=== PATIENT | female | born 1960 | race American Indian/Alaskan Native ===

== ENCOUNTER 2021-09-02 15:00 | Emergency (ER) | payer MEDICAID ==
[2021-09-02 16:41] VITALS: BP 134/79
--- NOTE | 2021-09-02 19:36 | XRay Report ---
CHEST 2 VIEWS INDICATION: sob. COMPARISON: None. FINDINGS: Support devices: None. Heart: Within normal limits. Lungs/Pleura: No acute air space or interstitial disease. No significant pleural effusion. Underlyi ng COPD. IMPRESSION: No acute findings. Signer Name: Corbin Bal MD Signed: 09/02/2021 7:31 PM Workstation Name: [id number]
--- NOTE | 2021-09-02 20:09 | Emergency Department Report ---
ED Shortness of Breath HPI - General Chief Complaint: Dyspnea/Respdistress Stated Complaint: COPD Time Seen by Provider: 09/02/21 19:23 Source: patient Mode of arrival: Ambulatory Limitations: No Limitations - History of Present Illness Initial Comments: 61-year-old female the past medical history of COPD (no home oxygen dependence) and hypertension presents to the hospital planing of URI symptoms for the past week. Patient is having chills, T-max of 100, and cough productive of white sputum. Patient is having a constant aching pain to her right lower anterior lateral chest for the past 4 days. Patient is concerned that she has pneumonia. He states pain is constant, dull, without aggravating or alleviating factors. Pain is not worse with inspiration, cough, or palpation. She denies significant shortness of breath. She is using her rescue and her maintenance inhaler and is not currently on nebs. Patient only received 1 dose of a Covid vaccine and denies loss of sense of taste and smell. She has not been recently vaccinated for Covid. There are no complaints of nausea or vomiting. - Related Data Previous Rx's Medication Instructions Recorded Last Taken Type Benzonatate [Tessalon Perles] 100 mg PO Q8HR PRN #20 cap 09/02/21 Unknown Rx Allergies Allergy/AdvReac Type Severity Reaction Status Date / Time No Known Allergies Allergy Verified 09/02/21 16:41 ED Review of Systems ROS: Stated complaint: COPD Other details as noted in HPI Comment: All other systems reviewed and negative ED Past Medical Hx - Past Medical History Hx Hypertension: Yes Hx COPD: Yes - Surgical History Past Surgical History?: No - Medications Home Medications: Home Medications Medication Instructions Recorded Confirmed Last Taken Type Benzonatate [Tessalon Perles] 100 mg PO Q8HR PRN #20 cap 09/02/21 Unknown Rx ED Physical Exam - General Limitations: No Limitations - Other Other exam information: General: No acute distress Head: Atraumatic Eyes: normal appearance ENT: Moist mucous membranes Neck: Normal appearance, no midline tenderness Chest: Clear to auscultation bilaterally, chest wall nontender CV: Regular rate and rhythm Abdomen: Soft, normal bowel sounds, nontender, nondistended, no rebound or guarding Back: Normal inspection Extremity: Normal inspection, full range of motion, no calf tenderness or leg edema Neuro: Alert O x 3, no facial asymmetry, speech clear, no gross motor sensory deficit Psych: Appropriate behavior Skin: No rash ED Course Vital Signs 09/02/21 16:36 Temperature 98.3 F Pulse Rate 95 H Respiratory 17 Rate Blood Pressure 134/79 O2 Sat by Pulse 93 Oximetry ED Medical Decision Making - Radiology Data Radiology results: report reviewed CHEST 2 VIEWS INDICATION: sob. COMPARISON: None. FINDINGS: Support devices: None. Heart: Within normal limits. Lungs/Pleura: No acute air space or interstitial disease. No significant pleural effusion. Underlying COPD. IMPRESSION: No acute findings. - Medical Decision Making 61-year-old female presents to the hospital with rest viral respiratory symptoms suspicious that she has pneumonia. Chest x-ray is unremarkable for infiltrate and confirms diagnosis of COPD. Patient sat 95% and she does not endorse any shortness of breath. She will be discharged home to continue symptomatic treatment for viral URI. Covid testing will be encouraged Critical Care Time: No Critical care attestation.: If time is entered above; I have spent that time in minutes in the direct care of this critically ill patient, excluding procedure time. ED Disposition Clinical Impression: Viral respiratory illness Disposition: HOME / SELF CARE / HOMELESS Is pt being admited?: No Does the pt Need Aspirin: No Condition: Stable Instructions: Viral Respiratory Infection, [id number], COVID-19: How to Protect Yourself and Others - CDC Additional Instructions: Take the medication as prescribed. Take Motrin or Tylenol as needed for cough and fever . follow-up with your doctor or doctor/clinic provided. Return if symptoms worsen as indicated by your discharge instructions. I recommend that you obtain outpatient Covid testing Prescriptions: Benzonatate [Tessalon Perles] 100 mg PO Q8HR PRN #20 cap PRN Reason: Cough Referrals: PRIMARY MD ARELI [Primary Care Provider] - 3-5 Days [facility] [Provider Group] - 3-5 Days (Primary care clinic) SHAZIA POOLE MD [Staff Physician] - 3-5 Days (Primary care doctor) Time of Disposition: 20:10
== END 2021-09-02 20:21 | disposition home or self-care (01) ==
LOC: ED 15:00
DX: J06.9 Acute upper respiratory infection, unspecified (principal); I10 Essential (primary) hypertension
CPT/HCPCS: 71046; 99283

== ENCOUNTER 2021-10-06 12:58 | Emergency (ER) | payer MEDICAID ==
[2021-10-06] MEDS ORDERED: ALBUTEROL 2.5 MG/3 ML NEBU IH ONE (13:27)
[2021-10-06] MEDS ORDERED: IPRATROPIUM 0.02% NEBU 2.5 ML IH ONE (13:27)
[2021-10-06] MEDS ORDERED: methylPREDNISolone Sod Succinate 125 MG/2 ML INJ IV ONE (13:28)
--- NOTE | 2021-10-06 14:53 | Emergency Department Report ---
Minor Respiratory - HPI Chief Complaint: Dyspnea/Respdistress Stated Complaint: COPD FLARE UP Time Seen by Provider: 10/06/21 13:28 Duration: 3 Days Pain Location: Chest Severity: moderate Minor Respiratory: Yes Able to Tolerate Fluids, Yes Shortness of Breath, No Rhinorrhea, No Sore Throat, No Ear Pain, No Cough, No Sick Contacts, No Hemoptysis, No Chest Pain, No Fever Other History: 61 yo comes to ER co wheezing and copd flare. No fever or chills. No chest pain. Out of her home meds. Did not see pcp. ED Review of Systems ROS: Stated complaint: COPD FLARE UP Other details as noted in HPI Comment: All other systems reviewed and negative ED Past Medical Hx - Past Medical History Previous Medical History?: Yes Hx Hypertension: Yes Hx COPD: Yes - Surgical History Past Surgical History?: No - Family History Family history: no significant - Social History Smoking Status: Current Every Day Smoker Substance Use Type: None - Medications Home Medications: Home Medications Medication Instructions Recorded Confirmed Last Taken Type ALBUTEROL NEB's [Proventil 0.083% 2.5 mg IH TID PRN #1 box 10/06/21 Unknown Rx NEBS] Albuterol Mdi (or & Nicu Only) 2 puff IH QID PRN #1 inhalation 10/06/21 Unknown Rx [ProAir HFA Inhaler] Fluticasone [Flonase] 1 spray NS QDAY #1 bottle 10/06/21 Unknown Rx predniSONE [Deltasone] 20 mg PO DAILY #5 tablet 10/06/21 Unknown Rx Minor Respiratory Exam - Exam General: Vital signs noted. No distress. Alert and acting appropriately. HEENT: Yes Moist Mucous Membranes, No Pharyngeal Erythema, No Pharyngeal Exudates, No Rhinorrhea, No Conjuctival Injection, No Frontal Tenderness, No Maxillary Tenderness Ear: Neither TM Bulge, Neither TM Erythema, Neither EAC Pain, Neither EAC Discharge Neck: Yes Supple, No Adenopathy Lungs: Yes Good Air Exchange, Yes Wheezes, No Ronchi, No Stridor, No Cough, No Labored Respirations, No Retractions, No Use of Accessory Muscles, No Other Abnormal Lung Sounds Heart: Yes Regular, No Murmur Abdomen: Yes Normal Bowel Sounds, No Tenderness, No Peritoneal Signs Skin: No Rash, No Edema Neurologic: Alert and oriented, no deficits. Musculoskeletal: Unremarkable. ED Course Vital Signs 10/06/21 13:24 Temperature 98.5 F Pulse Rate 92 H Respiratory 16 Rate O2 Sat by Pulse 92 Oximetry ED Medical Decision Making - Radiology Data Radiology results: report reviewed, image reviewed NAP - Medical Decision Making Vital Signs 10/06/21 13:24 Temperature 98.5 F Pulse Rate 92 H Respiratory 16 Rate O2 Sat by Pulse 92 Oximetry solumedrol IM nebs given xray nap dec wheezing and reports feeling better sp meds. ambulating with no difficulty dc home with dc plan of care including diet, activity, meds, follow up. Pt verbalizes understanding of d/c plan of care. - Differential Diagnosis copd ae with/wo infection Critical care attestation.: If time is entered above; I have spent that time in minutes in the direct care of this critically ill patient, excluding procedure time. ED Disposition Clinical Impression: COPD with acute exacerbation Disposition: 01 HOME / SELF CARE / HOMELESS Is pt being admited?: No Does the pt Need Aspirin: No Condition: Stable Instructions: Chronic Obstructive Pulmonary Disease Exacerbation, [id number], Chronic Obstructive Pulmonary Disease (ED) Additional Instructions: FOLLOW UP WITH PCP REFERRAL BELOW MEDS ORDERED STAY WELL HYDRATED Prescriptions: predniSONE [Deltasone] 20 mg PO DAILY #5 tablet Fluticasone [Flonase] 1 spray NS QDAY #1 bottle Albuterol Mdi (or & Nicu Only) [ProAir HFA Inhaler] 2 puff IH QID PRN #1 inhalation PRN Reason: Shortness Of Breath ALBUTEROL NEB's [Proventil 0.083% NEBS] 2.5 mg IH TID PRN #1 box PRN Reason: Wheezing Referrals: HSELIA MCKNIGHT MD [Staff Physician] - 3-5 Days Time of Disposition: 14:50
--- NOTE | 2021-10-06 15:16 | XRay Report ---
CHEST 2 VIEWS INDICATION: Dyspnea. COMPARISON: 09/02/2021 FINDINGS: Support devices: None. Heart: Within normal limits. Lungs/pleura: Moderate emphysematous changes are suspected. The lungs are generally clear with no ev idence for pneumonia, pleural effusion or pneumothorax. Additional findings: None. IMPRESSION: No acute findings. Moderate emphysematous changes. Signer Name: Manny Chacon Jr, MD Signed: 10/06/2021 3:12 PM Workstation Name: [id number]
[2021-10-06 15:51] VITALS: BP 116/74
== END 2021-10-06 15:52 | disposition home or self-care (01) ==
LOC: ED 12:58
DX: J44.1 Chronic obstructive pulmonary disease with (acute) exacerbation (principal); I10 Essential (primary) hypertension; F17.200 Nicotine dependence, unspecified, uncomplicated
CPT/HCPCS: 71046; 94640; 96374; 99283; J2930